=== PATIENT | male | born 1985 | race Caucasian/White ===

== ENCOUNTER 2019-08-07 17:41 | Emergency (ER) | payer OTHER ==
[~2019-08-07] VITALS: Ht 175.3 cm; Wt 83.5 kg
[2019-08-07 17:52] VITALS: BP 145/62
--- NOTE | 2019-08-07 17:56 | NUR ---
Patient ambulated to bed 8. RN evaluating patient at bedside.
--- NOTE | 2019-08-07 18:00 | NUR ---
RECIEVED PATIENT FROM TRIAGE TO BED 8. AAOX3, SKIN W/D TO TOUCH, MUÑOZ POS PULSE NEG EDEMA. PT HERE WITH CC MID CHEST PAIN X2 WEEKS, AND FLU SYMPTOMS X 1 WEEK W/ N/V, AND FEELS DIZZY. PENDING ER MD MARCELINO.
[2019-08-07] MEDS ORDERED: ALBUTEROL SULFATE/IPRATROPIU 3 ML SOL IH ONE (18:05)
[2019-08-07] MEDS ORDERED: DEXAMETHASONE 10 MG/ML VIAL IM ONE (18:05)
--- NOTE | 2019-08-07 18:05 | NUR ---
PT SEEN BY SANDRA LOZANO
--- NOTE | 2019-08-07 18:10 | NUR ---
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
--- NOTE | 2019-08-07 18:21 | NUR ---
Breathing treatment administered by respiratory therapist at bedside.
[2019-08-07] MEDS ORDERED: KETOROLAC 30 MG/ML VIAL IM ONE (18:55)
--- NOTE | 2019-08-07 19:14 | NUR ---
Patient discharged with v/s stable. Written and verbal after care instructions given and explained. Patient alert, oriented and verbalized understanding of instructions. Ambulatory with steady gait. All questions addressed prior to discharge. ID band removed. Patient advised to follow up with PMD. Rx of ALBUTEROL, PREDNISONE, IBUPROFEN, PROMETHAZINE DM given. Patient educated on indication of medication including possible reaction and side effects. Opportunity to ask questions provided and answered.
[2019-08-07 19:16] VITALS: BP 137/68
== END 2019-08-07 19:14 | disposition home or self-care (01) ==
LOC: MED 17:41
DX: J40 Bronchitis, not specified as acute or chronic (principal); F15.10 Other stimulant abuse, uncomplicated
CPT/HCPCS: 71045; 94640; 96372; 99283; J1100; J1885; J7620; Q0092